=== PATIENT | male | born 1970 | race Caucasian/White ===

== ENCOUNTER 2021-02-08 14:13 | Emergency (ER) | payer OTHER, SELFPAY ==
--- NOTE | ~2021-02-08 | XR_ITS ---
EXAMINATION: XR HIP, LEFT CLINICAL INFORMATION: Injury COMPARISON: None TECHNIQUE: Two views of the left hip and one view of the pelvis. FINDINGS: Bone alignment is normal. No fracture or dislocation is seen. The left hip joint is normal. Bones of the pelvis are normal. There are degenerative changes of the lower lumbar spine. Soft tissues are normal. XR/XR hip LT min 2V IMPRESSION: Normal-appearing hip. Degenerative changes of the lumbar spine.
[2021-02-08 14:26] VITALS: BP 223/102; PULSE 103; RESP 18; TEMP 36.9; O2SAT 98; BMI 43.2
[2021-02-08 15:01] LABS: MANUAL DIFF FLAG NO
[2021-02-08 15:02] LABS: Basophils Absolute Auto 0.1 X10*3/uL (0.0-0.2); Basophils Percent Auto 0.6 % (0-2); Eosinophils Absolute Auto 0.2 X10*3/uL (0.0-0.4); Eosinophils Percent Auto 1.7 % (0-4); Hematocrit 40.7 % (42-52); Hemoglobin 14.2 g/dl (14.0-18.0); Imm Gran Abs Auto 0.05 X10*3/uL (0.00-0.03); Imm Gran Pct Auto 0.4 % (0.0-0.4); Lymphocytes Absolute Auto 2.1 X10*3/uL (1.2-4.9); Mean Corpuscular HGB Conc 34.9 g/dl (31.0-36.0); Mean Corpuscular Hemoglobin 31.8 pg (27.0-33.0); Mean Corpuscular Volume 91.1 fL (80-98); Monocytes Percent Auto 8.6 % (2-11); Neutrophils Absolute Auto 8.1 X10*3/uL (2.0-8.3); Neutrophils Percent Auto 70.7 % (45-73); Platelet Count 240 X10*3/uL (160-400); Red Blood Count 4.47 X10*6/uL (4.60-5.80); Red Cell Distribution Width 12.9 % (11.0-16.0); White Blood Count 11.5 X10*3/uL (4.8-10.8)
[2021-02-08 15:14] LABS: Anion Gap 13 (12-20); Blood Urea Nitrogen 12 mg/dL (9-16); Calcium 9.7 mg/dL (8.4-10.2); Carbon Dioxide 26 mmol/L (22-29); Chloride 106 mmol/L (96-108); Creatinine Clr Calc Pharmacy 155.1; Estimated Glomerular Filt Rate > 60; Glucose Random 112 mg/dL (60-115); Potassium 4.3 mmol/L (3.3-5.1); Sodium 141 mmol/L (135-145)
[2021-02-08] MEDS: HYDROcodone Bit/Acetam 5/325 TABLET 1 TAB PO (18:18)
--- NOTE | 2021-02-08 18:31 | ED.EXTPRO ---
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 He denies feeling any sort or pop or snapping. He was walking around on it and finishing his work today but with increased pain and with a limp. He states the pain starts in his left lower back and radiates down his left leg to below his knee. Worse with putting pressure on his foot and leg. Improved with rest and sitting still. MD Complaint: extremity pain and joint paint Onset (ago): hour(s) Pain Consistency: constant Location: left and lower extremity Severity scale (1-10): 6 Quality: aching Radiation: distal Relieving factors: immobilization and rest Exacerbating factors: weight bearing and walking Associated symptoms: denies other symptoms Related Data Previous Rx's Medication Instructions Recorded amlodipine 5 mg tablet (Norvasc) 5 mg PO DAILY #30 tab 02/08/21 cyclobenzaprine 10 mg tablet 10 mg PO TID PRN #14 tab 02/08/21 ibuprofen 600 mg tablet 600 mg PO Q8H PRN #20 tab 02/08/21 lidocaine 5 % topical patch 1 patch TOPICAL DAILY #15 ea 02/08/21 (Lidoderm) Allergies Allergy/AdvReac Type Severity Reaction Status Date / Time No Known Allergies Allergy Unverified 02/27/20 18:18 Review of Systems Constitutional: Constitutional: Denies chills, Denies fever(s) and Denies headache(s) Eyes: Eyes: Denies change in vision ENT: Reports Normal hearing present, Denies headache(s) and Denies neck pain Cardiovascular: Cardiovascular: Denies chest pain, Denies chest pain at rest and Denies dyspnea Respiratory: Respiratory: Denies cough and Denies dyspnea Gastrointestinal: Gastrointestinal: Denies abdominal pain, Denies nausea and Denies vomiting Genitourinary: Genitourinary: Denies hematuria and Denies flank pain Musculoskeletal: Musculoskeletal: Reports arthralgias, Reports joint swelling, Denies muscle weakness, Denies neck pain, Denies numbness, Reports radiating pain into limb and Denies tingling Integumentary/Breasts: Skin/Breast: Denies swelling Neurologic: Reports Normal hearing present, Denies headache(s), Denies numbness, Denies tingling and Denies paresthesias Hematologic/Lymphatic: Hematologic/Lymphatic: Denies easy bleeding and Denies easy bruising PMFSH Past Medical History Attestation statement: The following information was validated with the patient. Social History Social History Advance Directives: No Advance Directives Information Provided: No Physical Exam Vital Signs: Vital Signs: Last Vital Signs Temp 98.4 F 02/08/21 14:26 Pulse 103 H 02/08/21 14:26 Resp 18 02/08/21 14:26 BP 223/102 H 02/08/21 14:26 Pulse Ox 98 02/08/21 14:26 Body Mass Index 43.2 Const: General: cooperative, healthy appearing, comfortable and no acute distress Nutritional Appearance: average body habitus Orientation/consciousness: patient oriented x3 Limitations: no limitations HENMT: Head: Yes normal to inspection, Yes normocephalic and Yes atraumatic Ears: hearing grossly normal bilaterally General nose exam: Normal external nose present and Normal nares present Face and sinus: Yes normal facial exam Mouth: Normal oral and palatal mucosa present, lip normal and tongue normal Teeth and gingiva: dentition normal and gingiva normal Throat: Yes posterior oropharynx normal Eyes: General: appearance normal, both eyes and all related structures Neck: Neck: Yes normal visual inspection, Yes full ROM, Yes no lymphadenopathy and No tender Chest: Chest palpation & inspection: normal inspection of the chest Resp: Effort & Inspection: normal respiratory effort and able to speak in complete sentences Auscultation: clear to auscultation bilaterally Cardio: Rate: regular rate Rhythm: regular rhythm Heart sounds: S1 normal heart sound present and S2 normal heart sound present GI: Inspection: Yes normal to inspection Palpation (GI): Soft to palpation and nontender Auscultation: normal bowel sounds Rectal Exam - Male: Yes deferred : General: Yes no CVA tenderness Back/Spine/Pelvis: Back: no CVA tenderness Cervical Spine: normal cervical lordosis Thoracic/Lumbar Spine: thoracic and lumbar spine normal to inspection, thoraco-lumbar ROM limited with forward flexion and with lateral flexion to the left and thoraco-lumbar spasm on the left in the lower lumbar Pelvis: no pain with anterior-posterior compression Sacroiliac joints: on the left tender to palpation Sacrum: no tenderness Coccyx: no tenderness Skin: General skin exam: no rashes or lesions noted Neuro: General: patient oriented x3 Cranial nerves: Yes Normal hearing present Gait exam (Neuro): Antalgic gait present Extrem: General: Yes normal to inspection Right upper extremity: normal to inspection Left upper extremity: normal to inspection Right lower extremity: normal to inspection and full ROM Left lower extremity: hip/thigh Details: tenderness Location: of the hip Location: laterally and posteriorly and of the proximal upper leg and abnormal ROM Details: pain with active ROM Details: with flexion Course Course Course Narrative: 50 y/o male presenting with left low back and hip pain after getting out of a truck today at work. Ambulatory but with a limp. BP on arrival 223/102 but he is asymptomatic. He reports longstanding history of HTN and is not on any medications. He has not seen a doctor in several years. Will treat pain and reassess BP as this could be contributing to elevated BP. XR pending. Most likely soft tissue tenderness and spasm. Reevaluation(s) Reevaluation #1: BP remains elevated. No symptoms. Calm and pain is minimal when he is not moving. Will start norvasc 5 mg daily. He has no health insurance so has not been in years. Important of BP management and outpatient follow up discussed. Stable for discharge home once BP improves. MDM - Extremity (Nontraumatic) Lab Data Result diagrams: 02/08/21 14:47 02/08/21 14:47 Labs: Lab Results 02/08/21 02/08/21 Range/Units 14:47 14:47 WBC 11.5 H (4.8-10.8) X10*3/uL RBC 4.47 L (4.60-5.80) X10*6/uL Hgb 14.2 (14.0-18.0) g/dl Hct 40.7 L (42-52) % MCV 91.1 (80-98) fL MCH 31.8 (27.0-33.0) pg MCHC 34.9 (31.0-36.0) g/dl RDW 12.9 (11.0-16.0) % Plt Count 240 (160-400) X10*3/uL MPV 9.0 L (9.4-12.4) fL Immature Gran % (Auto) 0.4 (0.0-0.4) % Neut % (Auto) 70.7 (45-73) % Lymph % (Auto) 18.0 L (20-40) % [place] % (Auto) 8.6 (2-11) % Eos % (Auto) 1.7 (0-4) % Baso % (Auto) 0.6 (0-2) % Lymph # (Auto) 2.1 (1.2-4.9) X10*3/uL [place] # (Auto) 1.0 (0.1-1.2) X10*3/uL Eos # (Auto) 0.2 (0.0-0.4) X10*3/uL Baso # (Auto) 0.1 (0.0-0.2) X10*3/uL Abs Immat Gran (auto) 0.05 H (0.00-0.03) X10*3/uL Absolute Neuts (auto) 8.1 (2.0-8.3) X10*3/uL Absolute Nucleated RBC 0.000 (0.0-0.012) X10*3/uL Nucleated RBC % (auto) 0.0 (0.0-0.2) /100WBC Sodium 141 (135-145) mmol/L Potassium 4.3 (3.3-5.1) mmol/L Chloride 106 (96-108) mmol/L Carbon Dioxide 26 (22-29) mmol/L Anion Gap 13 (12-20) BUN 12 (9-16) mg/dL Creatinine 0.73 (0.5-1.4) mg/dL Estim Creat Clear Calc 155.1 Estimated GFR > 60 Random Glucose 112 (60-115) mg/dL Calcium 9.7 (8.4-10.2) mg/dL Discharge Plan Discharge Clinical Impression: Low back strain, Hypertension Patient Disposition: Home, Self-Care Instructions: Acute Low Back Pain (ED), Lower Back Exercises (ED), Hypertension (ED) Additional Instructions: Your x-ray today showed no acute fractures. Your blood pressure was markedly elevated, but you had no symptoms of a hypertensive emergency. Take the prescribed medication for your blood pressure. Recommend following up with a primary care doctor JORGE. Your pain is most likely due to muscle strain and spasm. No bending, lifting or twisting. Use ice several times per day for 20 minutes at a time for the next 48 hours and then change to heat. Take medications as prescribed to help with pain and discomfort. Follow up with your Primary Care Doctor this week. If your pain worsens, if you develop new numbness, tingling, weakness, loss of function or incontinence call 911 or come back to the ER right away for evaluation. Prescriptions: New cyclobenzaprine 10 mg tablet 10 mg PO TID PRN (Reason: muscle spasm) Qty: 14 RF: 0 lidocaine [Lidoderm] 5 % adhesive patch,medicated 1 patch topical DAILY Qty: 15 RF: 0 ibuprofen 600 mg tablet 600 mg PO Q8H PRN (Reason: pain) Qty: 20 RF: 0 amlodipine [Norvasc] 5 mg tablet 5 mg PO DAILY Qty: 30 RF: 0 Referrals: [facility] [Provider Group] - 2 days Stand Alone Forms: Work/School Release
[2021-02-08] MEDS: Ibuprofen 600 MG TABLET PO (18:36)
[2021-02-08 19:03] VITALS: BP 208/98; PULSE 78
[2021-02-08] MEDS: amLODIPine Besylate 5 MG TABLET PO (19:03)
[2021-02-08 19:26] VITALS: BP 196/100; PULSE 88; RESP 16; O2SAT 98
== END 2021-02-08 19:40 | disposition home or self-care (01) ==
PROVIDERS: Emergency Provider Internal Medicine
DX: S39.012A Strain of muscle, fascia and tendon of lower back, initial encounter (principal); I10 Essential (primary) hypertension; M25.552 Pain in left hip; X50.0XXA Overexertion from strenuous movement or load, initial encounter; X50.9XXA Other and unspecified overexertion or strenuous movements or postures, initial encounter; Y93.9 Activity, unspecified; Y92.9 Unspecified place or not applicable; Y99.0 Civilian activity done for income or pay; Z79.899 Other long term (current) drug therapy
CPT/HCPCS: 36415; 73502; 80048; 85025; 96372; 99283; 99284

== ENCOUNTER → 2021-02-11 12:44 | Outpatient (BNVA) | payer OTHER, SELFPAY | PROVIDERS: Visit Provider Physician Assistant Medical | DX: S76.012A Strain of muscle, fascia and tendon of left hip, initial encounter (principal); V68.4XXA Person boarding or alighting a heavy transport vehicle injured in noncollision transport accident, initial encounter | CPT/HCPCS: 99204 ==

== ENCOUNTER → 2021-02-22 08:58 | Outpatient (BNVA) | payer OTHER, SELFPAY | PROVIDERS: Visit Provider Physician Assistant Medical | DX: S76.012D Strain of muscle, fascia and tendon of left hip, subsequent encounter (principal); X58.XXXD Exposure to other specified factors, subsequent encounter | CPT/HCPCS: 99213 ==

== ENCOUNTER 2021-02-23 13:44 | Outpatient (RCR) | payer OTHER, SELFPAY ==
--- NOTE | 2021-08-10 14:26 | MHC.PT.DC ---
[facility] [place] Office [place] [facility] [place] Office [address] [phone] F: [phone] F: [phone] F: [phone] F: [phone] Physical Therapy Discharge Report Diagnosis: L hip pain Date of Surgery: Date of Evaluation: 02/23/21 Date of Discharge: 08/10/21 Treatments to Date: 0 Cancellations to Date: 0 No Shows to Date: 0 Discharge Status: Recommend MD Follow-up Discharge Summary: Pt was unfortunately not an appropriate candidate for skilled PT due to uncontrolled BP. He was advised to go to ED for this but refused and his current status is unknown at this time. Electronically signed by: Ashley Valle, PT, DPT, ATC Please sign and return to therapist. Thank you for your referral.
== END 2021-08-10 14:26 | disposition home or self-care (01) ==
LOC: HO.PT 13:44
PROVIDERS: Visit Provider Physician Assistant Medical
DX: S76.012D Strain of muscle, fascia and tendon of left hip, subsequent encounter (principal)

== ENCOUNTER → 2021-03-04 08:06 | Outpatient (BNVA) | payer OTHER, SELFPAY | PROVIDERS: Visit Provider Physician Assistant Medical | DX: S76.012D Strain of muscle, fascia and tendon of left hip, subsequent encounter (principal); X58.XXXD Exposure to other specified factors, subsequent encounter | CPT/HCPCS: 99213 ==

== ENCOUNTER 2024-10-24 03:37 | Emergency (ER) | payer MEDICAID, SELFPAY ==
--- NOTE | ~2024-10-24 | XR_ITS ---
CLINICAL HISTORY: Pain and swelling 3 view left foot Comparison: None Findings: No acute fracture or dislocation is identified. Soft tissue structures appear intact. IMPRESSION: No acute osseous abnormality is identified. This document has been electronically signed by: Vicente Bah on 10/24/2024 06:29:43
--- NOTE | ~2024-10-24 | XR_ITS ---
CLINICAL HISTORY: pain and swelling 3 view left ankle Comparison: None Findings: There is a remote appearing fracture deformity of the distal tibia. No acute fracture or dislocation is identified. The ankle mortise is intact. Mild subcutaneous edema is seen about the ankle. IMPRESSION: 1. No acute osseous abnormality is identified. 2. Remote fracture deformity of the distal tibia. This document has been electronically signed by: Vicente Bah on 10/24/2024 06:34:04
--- NOTE | ~2024-10-24 | US_ITS ---
CLINICAL HISTORY: Pain and swelling Venous duplex ultrasound left lower extremity Comparison: None Findings: The visualized deep veins are fully compressible with normal Doppler color flow and spectral tracings. IMPRESSION: 1. Negative for left lower extremity deep vein thrombosis. This document has been electronically signed by: Vicente Bah on 10/24/2024 06:36:11
[2024-10-24 03:45] VITALS: BP 216/115; PULSE 98; RESP 18; TEMP 36.8; O2SAT 97; BMI 39.1
--- NOTE | 2024-10-24 04:01 | ED.LOWEXIN ---
HPI - Extremity Injury (Lower) General Chief Complaint: Extremity Injury, Lower Stated Complaint: left leg pain Time Seen by Provider: 10/24/24 04:00 Source: patient Mode of arrival: ambulatory Limitations: no limitations History of Present Illness ED Provider: DR. Sanderson HPI Narrative: 54-year-old male came in for evaluation of left ankle/foot pain and swelling started 2 days ago, patient do not recall injury or trauma to the left foot or ankle. No a recent travel, no history of DVT. Related Data Previous Rx's ?Medication ?Instructions ?Recorded amlodipine 5 mg tablet (Norvasc) 5 mg PO DAILY #30 tabs 02/08/21 cyclobenzaprine 10 mg tablet 10 mg PO TID PRN muscle spasm #14 02/08/21 tabs ibuprofen 600 mg tablet 600 mg PO Q8H PRN pain #20 tabs 02/08/21 lidocaine 5 % topical patch 1 patch topical DAILY #15 ea 02/08/21 (Lidoderm) Allergies Allergy/AdvReac Type Severity Reaction Status Date / Time No Known Allergies Allergy Verified 10/24/24 03:47 Review of Systems Review of Systems: All other systems are reviewed and are negative Constitutional: Reports as per HPI and Reports no additional constitutional complaints Eyes: Reports as per HPI and Reports no additional eye complaints Reports system reviewed and no additional complaints, except as documented Cardiovascular: Reports as per HPI and Reports no additional cardiovascular complaints Respiratory: Reports as per HPI and Reports no additional respiratory complaints Gastrointestinal: Reports as per HPI and Reports no additional gastrointestinal complaints Genitourinary: Reports no additional female genitourinary complaints Musculoskeletal: Reports no additional musculoskeletal complaints Skin/Breast: Reports system reviewed and no additional complaints, except as docu Psychiatric: Reports no additional psychiatric complaints Endocrine: Reports no additional endocrine complaints Hematologic/Lymphatic: Reports no additional hematologic/lymphatic complaints Allergic/Immunologic: Reports no additional allergic/immunologic complaints Reports system reviewed and no additional complaints, except as documented and Reports Abnormal speech present [facility] Social History Social History Smoked in Last 30 Days: No Use of substances other than those prescribed or required for medical reasons: No Advance Directives: No Advance Directives Information Provided: No Do you have a plan to hurt others: No Plan Physical Exam Vital Signs: Vital Signs: Last Vital Signs Temp 98.1 F 10/24/24 06:55 Pulse 80 10/24/24 06:55 Resp 16 10/24/24 06:55 BP 191/101 H 10/24/24 06:55 Pulse Ox 98 10/24/24 06:55 O2 Del Method Room Air 10/24/24 06:55 BMI result Body Mass Index 39.1 Vital signs have been reviewed and appear to be correct. Blood pressure elevated. Heart rate normal. Respiratory rate normal. Temperature normal. Oxygen saturation normal. Appearance: Alert. Oriented X3. No acute distress. Head: Normal external exam. Normocephalic. Atraumatic. No Andrew signs noted. No raccoon eyes noted Eyes: PERRLA. EOMI. Conjunctiva and sclera normal. Eyelids normal. ENT: TM's Normal. Pharynx normal. Uvula midline. Moist mucous membranes. No trismus noted. No drooling noted. No muffled voice noted. Neck: Normal inspection. Neck supple. FROM. No adenopathy. Thyroid Normal. No meningeal signs. No neck mass noted. CVS: Normal heart rate and rhythm. Heart sound normal. No murmurs noted. Pulses normal throughout. Respiratory: No respiratory distress. Painless inspiration. Breath sounds normal. No wheezes/rales/rhonchi noted. Chest nontender. No accessory muscle usage noted or decreased air movement noted. Abdomen: Soft and nontender. Bowel sounds normal in all 4 quadrants. No distention noted. No organomegaly noted. No visible injury noted. Back: No CVA tenderness. Full range of motion noted. Skin: Skin warm and dry. Normal skin color. Normal skin turgor. No rashes/lesions/lacerations noted. Extremities: Left foot/ankle: Mild tenderness with palpation, no step-off, no redness, no hotness. Neuro: Oriented X 3. Cranial nerve exam: II-XII are grossly intact No motor deficit. No sensory deficit. Reflexes normal. Course Reevaluation(s) Reevaluation #1: Left lower extremity swelling and pain, no injury, no trauma, ultrasound shows no DVT, x-ray is unremarkable. Patient was instructed to rest, ice, elevate leg, take NSAIDs every 6 hours if needed for pain. Noted that the blood pressure is elevated, patient declined any intervention, does not want me to start him on hypertension medication because he went now taking anyway, patient was instructed to follow-up with his PCP. Time: 07:09 Medical Decision Making Differential Diagnosis Differential Diagnoses: The differential diagnosis associated with the presentation includes (DVT, ankle fracture, foot fracture, essential hypertension.) Admission/Observation Consideration of admission/observation: Escalation of care including admission/observation considered Lab Data MDM Lab Attestation statement: I reviewed the patient's lab results. Labs: Lab Results 10/24/24 Range/Units 04:15 D-Dimer High Sensitivty < 150 NG/ML Independent Interpretation I performed an independent interpretation of an: Plain X-Ray (Left foot/left ankle: No acute fracture) and Ultrasound (Negative for DVT.) Radiology Impression Discussion of test interpretation with radiology: I have reviewed the radiologist's reading. Discharge Plan Discharge Clinical Impression: Left leg swelling, Essential hypertension Patient Disposition: Home, Self-Care Instructions: Leg Edema (ED), Hypertension (ED) Prescriptions: No Action cyclobenzaprine 10 mg tablet 10 mg PO TID PRN (Reason: muscle spasm) Qty: 14 0RF lidocaine [Lidoderm] 5 % adhesive patch,medicated 1 patch topical DAILY Qty: 15 0RF Rx Instructions: leave on most painful area for up to 12 hrs ibuprofen 600 mg tablet 600 mg PO Q8H PRN (Reason: pain) Qty: 20 0RF amlodipine [Norvasc] 5 mg tablet 5 mg PO DAILY Qty: 30 0RF Print Language: Telugu
[2024-10-24 04:29] LABS: D Dimer High Sensitivity < 150 NG/ML
[2024-10-24 06:55] VITALS: BP 191/101; PULSE 80; RESP 16; TEMP 36.7; O2SAT 98
[2024-10-24 07:17] VITALS: BP 191/101; PULSE 80; RESP 16; TEMP 36.7; O2SAT 98
== END 2024-10-24 07:18 | disposition home or self-care (01) ==
PROVIDERS: Emergency Provider Emergency Medicine
DX: M25.472 Effusion, left ankle (principal); I10 Essential (primary) hypertension; M79.672 Pain in left foot
CPT/HCPCS: 36415; 73610; 73630; 85379; 93971; 99284

== ENCOUNTER → 2024-10-24 04:00 | Outpatient (BNV) | payer SELFPAY | PROVIDERS: Emergency Provider Emergency Medicine; Visit Provider Radiology Vascular & Interventional Radiology | DX: R22.42 Localized swelling, mass and lump, left lower limb (principal); M25.572 Pain in left ankle and joints of left foot; M79.672 Pain in left foot | CPT/HCPCS: 73610; 73630; 93971 ==